=== PATIENT | male | born 2005 | race African-American/Black ===

== ENCOUNTER 2024-06-27 03:18 | Emergency (ER) | payer BC ==
[2024-06-27 03:21] VITALS: BMI 20.5
[2024-06-27] MEDS ORDERED: predniSONE 20 MG TABLET (UD) ONE (03:32)
[2024-06-27] MEDS ORDERED: FAMOTIDINE 20 MG TABLET ONE (03:33)
[2024-06-27] MEDS: FAMOTIDINE 20 MG TABLET PO ONE (03:41)
[2024-06-27] MEDS: FAMOTIDINE 20 MG/50 ML IVPB 20 MG/50 ML MG IVPB ONE (03:41)
[2024-06-27] MEDS: predniSONE 20 MG TABLET (UD) PO ONE (03:41)
[2024-06-27 04:37] VITALS: BP 103/80; PULSE 83; RESP 17; TEMP 97.8
== END 2024-06-27 06:15 | disposition home or self-care (01) ==
LOC: JER 03:18
DX: T78.1XXA Other adverse food reactions, not elsewhere classified, initial encounter (principal); Z91.018 Allergy to other foods; R00.0 Tachycardia, unspecified; R22.0 Localized swelling, mass and lump, head
CPT/HCPCS: 99283-25